=== PATIENT | female | born 1975 | race Caucasian/White ===

== ENCOUNTER 2017-08-23 03:49 | Emergency (ER) | payer BC ==
[~2017-08-23] VITALS: Ht 162.6 cm; Wt 59.1 kg
[~2017-08-23 03:49] MED LIST: AMOXICILLIN 8751 TAB PO; BIRTH CONTROL PILLS; CIPRO 500MG TA500 MG PO; CYMBALTA 60MG60 MG; DESYREL 50MG50 MG PO; EFFEXOR 50M50 MG/TAB PO; FLOMAX 0.40.4 MG/CAP PO; LEVAQUIN 5500 MG/TA1 PO; LORTAB 5/500 501 TAB PO; MACROBID 1100 MG/CAP PO; MEDROL 4MG DOSPA4 MG PO; NO HOME MEDICATIONS; NORCO 325 MG-51 TAB PO; PERCOCET 325 MG1 TA2 PO; PHENERGAN 25 TA25 MG PO; PRILOSEC 20MG20 MG PO; SYNTHROID0.112 MG/T PO; ULTRAM 50MG TAB50 MG PO; VALIUM 10MG10 MG/TAB PO; XANAX 1MG1 MG PO; ZOFRAN 4MG T4 MG/TAB PO; ZYRTEC 10MG10 MG PO
[2017-08-23 03:51] VITALS: TEMP 99.1
[2017-08-23] MEDS ORDERED: ABILIFY5 MG PO (03:56)
[2017-08-23 04:29] LABS: BASO % 0.7 % (0.0-2.0); EOS % 0.9 % (0-4.0); GRAN # 2.9 (1.4-6.5); GRAN % 64.1 % (42.2-75.2); LYMPH # 1.1 (1.2-3.4); MEAN CELL VOLUME 88 fl (80.0-100.0); MEAN CORPUSCULAR HGB CONC 32 g/dl (33.0-37.0); MONO # 0.4 (0.1-0.6); MONO % 9.1 % (1.7-9.3); PLATELET COUNT 139 K/mm3 (130-400); RED BLOOD COUNT 3.74 M/mm3 (4.10-5.30); WHITE BLOOD COUNT 4.5 K/mm3 (4.8-10.8)
[2017-08-23 04:30] LABS: HEMATOCRIT 32.9 % (37.0-47.0); HEMOGLOBIN 10.6 g/dl (12.5-16.0); MEAN CORPUSCULAR HEMOGLOBIN 28 pg (27.0-31.0)
[2017-08-23 04:42] LABS: ADJUSTED CALCIUM 8.9 mg/dL (8.4-10.2); ALANINE AMINOTRANSFERASE 228 U/L (9-52); ALBUMIN 3.7 gm/dL (3.5-5.0); ALKALINE PHOSPHATASE 76 U/L (50-136); ANION GAP 6 mmol/L (7-16); BILIRUBIN,TOTAL 0.7 mg/dL (0.0-1.0); BLOOD UREA NITROGEN 17 mg/dL (7-17); C-REACTIVE PROTEIN < 0.5 mg/dL (0.0-0.9); CALCIUM 8.7 mg/dL (8.4-10.2); CARBON DIOXIDE 30 mmol/L (22-30); CHLORIDE 102 mmol/L (98-107); CREATININE, serum 0.65 mg/dL (0.52-1.25); GLUCOSE 77 mg/dL (74-106); LIPASE 66 U/L (23-300); SODIUM 138 mmol/L (137-145); TOTAL PROTEIN 6.8 gm/dL (6.4-8.2)
[2017-08-23 04:54] LABS: PROTHROMBIN TIME 10.5 SECONDS (9.7-12.8)
[2017-08-23] MEDS ORDERED: NORCO 325 MG-51 TAB PO (05:32)
[2017-08-23 05:38] LABS: COLLECTION METHOD CLEAN CATCH
[2017-08-23 05:45] LABS: PH 6 (5-8); SQUAMOUS EPITHELIAL 0-2 /hpf; URINE APPEARANCE Clear; URINE BACTERIA None Seen /hpf; URINE BILIRUBIN Negative (NEGATIVE); URINE BLOOD Negative (NEGATIVE); URINE COLOR Yellow; URINE GLUCOSE Negative (NEGATIVE); URINE KETONE Negative (NEGATIVE); URINE LEUKOCYTE ESTERASE Negative (NEGATIVE); URINE PROTEIN(semi-quant) Negative (NEGATIVE); URINE RBC 0-2 /hpf; URINE UROBILINOGEN Negative (NEGATIVE); URINE WBC 0-2 /hpf
[2017-08-23 05:56] VITALS: BP 132/76; PULSE 92
== END 2017-08-23 05:58 | disposition home or self-care (01) ==
LOC: COL.ER 03:49
PROVIDERS: Emergency Medicine
DX: N83.291 Other ovarian cyst, right side (principal); E03.9 Hypothyroidism, unspecified; F32.9 Major depressive disorder, single episode, unspecified; Z87.442 Personal history of urinary calculi; Z90.710 Acquired absence of both cervix and uterus; Z90.49 Acquired absence of other specified parts of digestive tract; Z90.721 Acquired absence of ovaries, unilateral
CPT/HCPCS: J2405; J3010; J7030; Q9967

== ENCOUNTER 2018-02-03 11:47 | Emergency (ER) | payer BC, OTHER ==
[~2018-02-03] VITALS: Ht 162.6 cm; Wt 60.0 kg
[~2018-02-03 11:47] MED LIST changes: +ABILIFY5 MG PO; +EFFEXOR 3737.5 MG/TA PO; -EFFEXOR 50M50 MG/TAB PO; +SYNTHROID0.1 MG/TAB PO; -SYNTHROID0.112 MG/T PO
[2018-02-03] MEDS ORDERED: ATIVAN 0.50.5 MG/TAB PO (12:05)
[2018-02-03] MEDS ORDERED: EFFEXOR-XR150 MG PO (12:10)
[2018-02-03] MEDS ORDERED: ESTRACE2 MG PO (12:11)
[2018-02-03 12:19] LABS: BASO % 0.5 % (0.0-2.0); EOS # 0.1 (0.0-0.7); EOS % 1.4 % (0-4.0); GRAN # 2.9 (1.4-6.5); GRAN % 64.3 % (42.2-75.2); LYMPH # 1.1 (1.2-3.4); LYMPH % 25.7 % (20.0-51.0); MEAN CELL VOLUME 84 fl (80.0-100.0); MEAN CORPUSCULAR HGB CONC 33 g/dl (33.0-37.0); MONO # 0.4 (0.1-0.6); MONO % 7.9 % (1.7-9.3); PLATELET COUNT 158 K/mm3 (130-400); RED BLOOD COUNT 4.07 M/mm3 (4.10-5.30); REDCELL DISTRIBUTION WIDTH-CV 12.9 % (11.5-14.5)
[2018-02-03 12:21] LABS: HEMATOCRIT 34.3 % (37.0-47.0); HEMOGLOBIN 11.4 g/dl (12.5-16.0); MEAN CORPUSCULAR HEMOGLOBIN 28 pg (27.0-31.0)
[2018-02-03 12:26] LABS: ALANINE AMINOTRANSFERASE 21 U/L (9-52); ALBUMIN 3.8 gm/dL (3.5-5.0); ALKALINE PHOSPHATASE 70 U/L (50-136); ANION GAP 10 mmol/L (7-16); AST,SGOT 19 U/L (15-37); BILIRUBIN,TOTAL 0.4 mg/dL (0.0-1.0); BLOOD UREA NITROGEN 16 mg/dL (7-17); CALCIUM 8.9 mg/dL (8.4-10.2); CARBON DIOXIDE 28 mmol/L (22-30); CHLORIDE 102 mmol/L (98-107); CREATININE, serum 0.81 mg/dL (0.52-1.25); GLUCOSE 105 mg/dL (74-106); POTASSIUM 3.4 mmol/L (3.4-5.0); SODIUM 140 mmol/L (137-145); TOTAL PROTEIN 7.1 gm/dL (6.4-8.2)
[2018-02-03 12:27] LABS: ACETAMINOPHEN < 10 ug/mL (10-30); ALCOHOL(ethanol),MEDICAL < 10 mg/dL; SALICYLATE < 1.0 mg/dL
[2018-02-03 12:56] LABS: TSH w REFLEX 0.501 uIU/mL (0.465-4.680)
[2018-02-03 14:45] LABS: TRICYCLIC ANTIDEPRESS URINE NEGATIVE
[2018-02-03 18:13] VITALS: BP 110/75; PULSE 65; TEMP 97.9
== END 2018-02-03 17:48 | disposition short-term general hospital (02) ==
LOC: COL.ER 11:47
PROVIDERS: Emergency Medicine
DX: T42.4X2A Poisoning by benzodiazepines, intentional self-harm, initial encounter (principal); F32.9 Major depressive disorder, single episode, unspecified; F41.9 Anxiety disorder, unspecified; E03.9 Hypothyroidism, unspecified
CPT/HCPCS: J7030